=== PATIENT | female | born 1970 | race Caucasian/White ===

== ENCOUNTER 2018-12-11 05:46 | Day surgery (SDC) | payer OTHER ==
[~2018-12-11] VITALS: Ht 170.2 cm; Wt 90.0 kg
[~2018-12-11 05:46] MED LIST: ASPI81CH PO; ATOR10 PO; B Complete1 EACH PO; CALCAVITDA PO; ESTR2 PO; FENO48 PO; GABA300 PO; GLIM2 PO; GLIP10ER PO; HEARTBURN RELI150 M1 PO; LISHYD2012 PO; LOSARTAN PO; METF500; METF500 PO; Norco 5-325 Ta1 EACH PO; OMEP20ER PO; OMEPRAZOLE PO; PROM25 PO; Prinivil10 MG PO; TRAM50 PO; VITAMIN D3 PO
[2018-12-11] MEDS ORDERED: OMEPRAZOLE20 MG PO (06:26)
== END 2018-12-11 22:51 | disposition home or self-care (01) ==
LOC: MHTC 05:46
DX: Z45.09 Encounter for adjustment and management of other cardiac device (principal); I63.9 Cerebral infarction, unspecified; E11.9 Type 2 diabetes mellitus without complications; I10 Essential (primary) hypertension; E78.00 Pure hypercholesterolemia, unspecified
CPT/HCPCS: 33286

== ENCOUNTER 2020-09-27 10:14 | Emergency (ER) | payer OTHER ==
[~2020-09-27] VITALS: Ht 167.6 cm; Wt 72.6 kg
[~2020-09-27 10:14] MED LIST changes: +OMEPRAZOLE20 MG PO
[2020-09-27] MEDS ORDERED: Pyridium200 MG PO (10:39)
[2020-09-27] MEDS ORDERED: Cephalexin500 M1 PO (10:39)
== END 2020-09-27 10:40 | disposition home or self-care (01) ==
LOC: ER 10:14
DX: N39.0 Urinary tract infection, site not specified (principal); Z79.82 Long term (current) use of aspirin; Z79.899 Other long term (current) drug therapy
CPT/HCPCS: 99283

== ENCOUNTER → 2020-10-12 | Outpatient (CLI) | payer OTHER ==
[~2020-10-12] MED LIST changes: +Cephalexin500 M1 PO; +Pyridium200 MG PO
== END | disposition home or self-care (01) ==
LOC: LAB SHORT 13:48 → LAB 13:48
DX: N39.0 Urinary tract infection, site not specified (principal)
CPT/HCPCS: 87077; 87086; 87186

== ENCOUNTER → 2020-12-17 | Outpatient (CLI) | payer OTHER | END | disposition home or self-care (01) | LOC: LAB SHORT 13:45 → LAB 13:45 → LAB FUT 12-17 18:15 | DX: R82.998 Other abnormal findings in urine (principal) | CPT/HCPCS: 87077; 87086; 87186 ==

== ENCOUNTER 2021-09-22 02:04 | Inpatient (IN) | payer OTHER ==
[~2021-09-22] VITALS: Ht 170.2 cm; Wt 83.5 kg
[2021-09-22 06:21] LABS: Albumin, Blood 3.7 g/dL (3.4-5.0); Bilirubin, Total 0.3 mg/dL (0.1-1.0); Calcium, Blood 8.9 mg/dL (8.5-10.1); Creatinine, Blood 6.3 mg/dL (0.40-1.00); Globulin, Blood 3.6 g/dL (2.2-4.0); Potassium, Blood 4.3 mmol/L (3.5-5.5); Total Protein, Blood 7.3 g/dL (6.4-8.2)
[2021-09-22 07:26] LABS: BASOPHILS ABSOLUTE AUTO 0.02 K/mm3 (0.00-0.23); BASOPHILS PERCENT AUTO 0 % (0-2); EOSINOPHILS PERCENT AUTO 1 % (0-6); Hematocrit 33.2 % (33.0-51.0); IMMATURE GRAN ABSOLUTE AUTO 0.02 K/mm3 (0.00-0.10); IMMATURE GRAN PERCENT AUTO 0 % (0-1); LYMPHOCYTES ABSOLUTE AUTO 1.11 K/mm3 (0.84-5.20); LYMPHOCYTES PERCENT AUTO 13 % (21-46); MONOCYTES ABSOLUTE AUTO 0.48 K/mm3 (0.16-1.47); MONOCYTES PERCENT AUTO 6 % (4-13); Mean Corpuscular HGB 27.8 pg (26.0-34.0); Mean Corpuscular HGB Conc 33.1 g/dL (31.5-36.5); Mean Corpuscular Volume 84 fL (80-100); Mean Platelet Volume 10.6 fL (9.1-12.4); NEUTROPHILS ABSOLUTE AUTO 6.85 K/mm3 (1.96-9.15); NEUTROPHILS PERCENT AUTO 80 % (41-73); Platelet Count 250 K/mm3 (150-400); RDW Coefficient Variation 14.5 % (11.7-14.2); RDW Standard Deviation 44.4 fL (35.1-46.3); Red Blood Cell Count 3.95 M/mm3 (3.80-5.20); White Blood Cell Count 8.58 K/mm3 (4.00-11.30)
[2021-09-22 07:43] LABS: Glucose, Blood 41 mg/dL (70-99)
--- NOTE | 2021-09-22 16:49 | NUR ---
PATIENT ADMITTED FOR HYPOGLYCEMIA Patient AOx4, independent in room. Mild tremors noted in hands, D5W running cotinously, CBG 70. Patient ate lunch, rechecked CBG a few hours later, CBG now 133. Patient appears comfortable, denies sx cold/clammy, N/V, no tremors in hands noted. Vitals stable.
--- NOTE | 2021-09-23 04:33 | NUR ---
ON 09/23/21 @ 0015, DR HARRIS ROUND OFF WITH PT. PROVIDER ORDERED, " ADD NS @ 50 ML/HR ALONG WITH D5NS @50 ML/HR" PROVIDER FURTHER ADDED, " IF BS <100 D/C D5NS & INCREASE RATE OF NS TO 100 ML/HR. IF BS >275, D/C NS AND INCREASE RATE OF D5NS @100 ML/HR. OTHERWISE, KEEP D5NS & NS @50 ML/HR." NS STARTED AT 50 ML/HR ORDERED. ACCUCHECKS Q4HRS. WILL CONTINUE TO MONITOR.
--- NOTE | 2021-09-23 04:47 | NUR ---
A&OX4. V/S WNL.INDEPENDANT. ADA DIET. ACUCHEKCS Q4HRS. IV TO R) HAND; D5NS & NS BOTH INFUSING SIMULTANEOUSLY @ 50 ML/HR ORDERED. ACUCHECKS: 251; 239, 213. VOIDS W/O DIFFICULTY. NO BM THIS SHIFT. WILL CONTINUE TO MONITOR.
[2021-09-23 05:58] LABS: Hematocrit 29.8 % (33.0-51.0); Hemoglobin 9.8 g/dL (11.5-16.0)
[2021-09-23 06:23] LABS: Anion Gap 10 mmol/L (6-16); Blood Urea Nitrogen 64 mg/dL (8-24); Bun/Creatinine Ratio 10.6 (12.0-20.0); CO2, Blood 20 mmol/L (21-32); Calcium, Blood 8.6 mg/dL (8.5-10.1); Chloride, Blood 108 mmol/L (98-108); Creatinine, Blood 6.03 mg/dL (0.40-1.00); Glomerular Filtration Rate 8 (60-); Glucose, Blood 200 mg/dL (70-99); Magnesium, Blood 1.8 mg/dL (1.6-2.4); Phosphorus, Blood 5.5 mg/dL (2.5-4.9); Sodium, Blood 138 mmol/L (136-145)
--- NOTE | 2021-09-23 06:43 | NUR ---
ROUNDED OF WITH PT. PROVIDER SAID, " IF BS > 250 D/C D5NS AND INCREASE RATE OF NS AT 100 ML/HR." WILL CONTINUE TO MONITOR.
[2021-09-23 12:43] LABS: Source, Urine Clean Catch
[2021-09-23 13:04] LABS: Appearance, Urine Clear (Clear); Bilirubin, Urine Neg (Neg); Blood, Urine 2+ (Neg); Glucose Qualitative, Urine 2+ (Neg); Ketones, Urine Neg (Neg); Leukocyte Esterase, Urine Neg (Neg); Nitrite, Urine Neg (Neg); Protein, Urine 1+ (Neg); Urobilinogen, Urine NORM (Normal); pH, Urine 6.5 (5.0-8.0)
[2021-09-23 13:21] LABS: Color, Urine Yellow (P-Yellow)
[2021-09-23 13:22] LABS: Bacteria Few /hpf; Squamous Epithelial Cells Few /hpf (Few); White Blood Cells, Urine 0-2 /hpf (0-5)
[2021-09-23 15:28] LABS: Bun/Creatinine Ratio 10.3 (12.0-20.0); Creatinine, Blood 6.11 mg/dL (0.40-1.00); Potassium, Blood 4.9 mmol/L (3.5-5.5)
--- NOTE | 2021-09-23 17:08 | NUR ---
SHIFT SUMMARY PT SEEMS TO BE IMPROVING AND DENIES ANY SYMPTOMS OF HYPOGLYCEMIA. IV FLUIDS STOPPED AND BLOOD GLUCOSE HAS REMAINED IN THE MID 200'S AT THIS TIME. INSULIN STARTED TONIGHT. VSS.
--- NOTE | 2021-09-24 04:22 | NUR ---
A&OX4. V/S WNL. INDEPENDANT. ADA DIET. ACUCHECKS Q4HRS. REFER TO LABS FOR ACUCHECKS. IV TO R) HAND. VOIDS W/O DIFFICULTY. NO BM THIS SHIFT. PT HAD A SHOWER. WILL CONTINUE TO MONITOR.
[2021-09-24 06:02] LABS: Hematocrit 30.7 % (33.0-51.0); Hemoglobin 9.8 g/dL (11.5-16.0)
[2021-09-24 06:16] LABS: Anion Gap 9 mmol/L (6-16); Blood Urea Nitrogen 65 mg/dL (8-24); Bun/Creatinine Ratio 11.7 (12.0-20.0); CO2, Blood 22 mmol/L (21-32); CPK Creatine Kinase 72 U/L (26-193); Calcium, Blood 8.9 mg/dL (8.5-10.1); Chloride, Blood 108 mmol/L (98-108); Creatinine, Blood 5.57 mg/dL (0.40-1.00); Glomerular Filtration Rate 9 (60-); Glucose, Blood 206 mg/dL (70-99); Magnesium, Blood 1.9 mg/dL (1.6-2.4); Phosphorus, Blood 4.9 mg/dL (2.5-4.9); Potassium, Blood 4.2 mmol/L (3.5-5.5); Sodium, Blood 139 mmol/L (136-145)
--- NOTE | 2021-09-24 11:06 | NUR ---
AM NOTE MS MARIANO IS COMFORTABLE IN BED, NO PAIN OR SOB THIS AM. SHE SPOKE WITH DR LE AND SAID SHE UNDERSTANDS THE PLAN OF CARE. GOOD UOP, 1000CC YELLOW URINE EMPTIED THIS AM. INDEPENDENT UP TO THE TOILET, STEADY GAIT PER PT. BED LOW, CALL LIGHT IN REACH.
--- NOTE | 2021-09-24 16:40 | NUR ---
SHIFT SUMMARY MS MARIANO IS ALERT, ORIENTATED X 4, NO C/O PAIN. GOOD UOP. IVF STARTED AT 50CC/HR THEN RATE INCREASED TO 75CC/HR. NEW PIV PLACED. TOLERATING PO FLUIDS WELL. UP INDEPENDENTLY TO BR, DENIES DIZZYNESS. AT BEDSIDE. BED LOW, CALL LIGHT IN REACH.
[2021-09-24 16:45] LABS: Albumin, Blood 3.1 g/dL (3.4-5.0); Anion Gap 7 mmol/L (6-16); Blood Urea Nitrogen 61 mg/dL (8-24); Bun/Creatinine Ratio 12.3 (12.0-20.0); CO2, Blood 22 mmol/L (21-32); Chloride, Blood 107 mmol/L (98-108); Creatinine, Blood 4.95 mg/dL (0.40-1.00); Glomerular Filtration Rate 10 (60-); Glucose, Blood 266 mg/dL (70-99); Phosphorus, Blood 4.4 mg/dL (2.5-4.9); Sodium, Blood 136 mmol/L (136-145)
--- NOTE | 2021-09-25 05:23 | NUR ---
SHIFT SUMMARY NO ACUTE CHANGES THIS SHIFT. AOX4. VSS. SBP ELEVATED @TIMES TO 170'S, HOWEVER WHEN RECHECKED SBP DECREASED TO 150'S. DENIES N/V, DYSPNEA. HS CBG @290, 0100 CBG @171, NO COVERAGE ORDERED. VOIDING ADEQUATE URINE. ABLE TO MAKE NEEDS KNOWN, PT WANTING TO DC HOME TODAY. WILL MONITOR.
[2021-09-25 05:37] LABS: Hematocrit 28.7 % (33.0-51.0); Hemoglobin 9.5 g/dL (11.5-16.0)
[2021-09-25 06:11] LABS: Anion Gap 10 mmol/L (6-16); Blood Urea Nitrogen 60 mg/dL (8-24); Bun/Creatinine Ratio 13.4 (12.0-20.0); CO2, Blood 22 mmol/L (21-32); Chloride, Blood 107 mmol/L (98-108); Creatinine, Blood 4.47 mg/dL (0.40-1.00); Glomerular Filtration Rate 11 (60-); Glucose, Blood 153 mg/dL (70-99); Magnesium, Blood 1.9 mg/dL (1.6-2.4); Phosphorus, Blood 5.5 mg/dL (2.5-4.9); Potassium, Blood 3.9 mmol/L (3.5-5.5); Sodium, Blood 139 mmol/L (136-145)
[2021-09-25] MEDS ORDERED: CEPH500 PO (13:59)
[2021-09-25] MEDS ORDERED: HUMALOG KW100 UNIT/1 SC (14:10)
--- NOTE | 2021-09-25 16:36 | NUR ---
DISCHARGE NOTE DISCHARGED TO HOME WITH AT 1500HRS. GIVEN VERBAL AND WRITTEN INSTRUCTIONS PLUS DEMONSTRATION OF INSULIN PEN. PT VERBALISED FULL UNDERSTANDING OF DISCHARGE INSTRUCTIONS. SHE DENIED ANY C/O PAIN OR SYMPTOMS AT TIME OF DISCHARGE. PIV REMOVED INTACT. PT WAS A&OX4. GOOD APPETITE. UP INDEPENDENT TO BATHROOM, STEADY GAIT. NO CONCERNS VOICED ON DISCHARGE FROM [facility].
--- NOTE | 2021-09-26 11:31 | NUR ---
RECEIVED CALL FROM [facility] REQUESTING MAX DOSE OF INSULIN PT CAN HAVE IN ONE DAY FOR LISPRO INSULIN SO THEY CAN FILL THE PRESCRIPTION. GAVE INFO AND CALLED PT TO LET HER KNOW SHE CAN DIRECTOR COST HER PRESCRIPTION TODAY.
== END 2021-09-25 15:00 | disposition home or self-care (01) | DRG 638 ==
LOC: ER 02:04 → PCU 02:05 → MEDS 02:05
PROVIDERS: Family Medicine; Internal Medicine; Internal Medicine Nephrology; Student in an Organized Health Care Education/Training Program; ADMIT Internal Medicine
DX: E11.649 Type 2 diabetes mellitus with hypoglycemia without coma (principal); E87.1 Hypo-osmolality and hyponatremia; N39.0 Urinary tract infection, site not specified; E87.2 Acidosis; N17.9 Acute kidney failure, unspecified; I12.9 Hypertensive chronic kidney disease with stage 1 through stage 4 chronic kidney disease, or unspecified chronic kidney disease; N18.2 Chronic kidney disease, stage 2 (mild); D63.1 Anemia in chronic kidney disease; G89.29 Other chronic pain; E88.09 Other disorders of plasma-protein metabolism, not elsewhere classified; E11.22 Type 2 diabetes mellitus with diabetic chronic kidney disease; E78.00 Pure hypercholesterolemia, unspecified; E11.40 Type 2 diabetes mellitus with diabetic neuropathy, unspecified; T38.3X5A Adverse effect of insulin and oral hypoglycemic [antidiabetic] drugs, initial encounter; Z86.73 Personal history of transient ischemic attack (TIA), and cerebral infarction without residual deficits; Z79.84 Long term (current) use of oral hypoglycemic drugs; Z79.82 Long term (current) use of aspirin; Z79.899 Other long term (current) drug therapy; Z90.710 Acquired absence of both cervix and uterus; Z90.722 Acquired absence of ovaries, bilateral; Z90.49 Acquired absence of other specified parts of digestive tract; Z90.89 Acquired absence of other organs
CPT/HCPCS: 36415; 76770; 80048; 80053; 80069; 81001; 82550; 82947; 83735; 85014; 85018; 85025; 87077; 87086; 87186; 96361; 99285; A9270; G0378; J0696; J0881; J1644; J7030; J7042; J7060; J7120

== ENCOUNTER → 2021-10-08 | Outpatient (CLI) | payer OTHER ==
[~2021-10-08] MED LIST changes: +CEPH500 PO; +HUMALOG KW100 UNIT/1 SC
== END | disposition home or self-care (01) ==
LOC: LAB SHORT 16:46 → LAB 16:46
DX: N39.0 Urinary tract infection, site not specified (principal)
CPT/HCPCS: 87086

== ENCOUNTER → 2022-04-19 | Outpatient (CLI) | payer OTHER | LOC: PLD 07:44 → LAB SHORT 07:44 | DX: R21 Rash and other nonspecific skin eruption (principal) | CPT/HCPCS: 88312 ==

== ENCOUNTER 2022-11-28 19:06 | Emergency (ER) | payer OTHER ==
[~2022-11-28] VITALS: Ht 170.2 cm; Wt 68.0 kg
[2022-11-28 19:19] VITALS: BP 192/94
== END 2022-11-28 20:15 | disposition home or self-care (01) ==
LOC: ER 19:06
DX: S01.511A Laceration without foreign body of lip, initial encounter (principal); E11.9 Type 2 diabetes mellitus without complications; I10 Essential (primary) hypertension; Z86.73 Personal history of transient ischemic attack (TIA), and cerebral infarction without residual deficits; Z79.82 Long term (current) use of aspirin; Z79.4 Long term (current) use of insulin; W01.198A Fall on same level from slipping, tripping and stumbling with subsequent striking against other object, initial encounter
CPT/HCPCS: 12011; 99282-25

== ENCOUNTER → 2023-04-23 | Outpatient (CLI) | payer OTHER | LOC: LAB 15:00 → LAB SHORT 15:00 | DX: N39.0 Urinary tract infection, site not specified (principal) | CPT/HCPCS: 87077; 87086; 87186 ==

== ENCOUNTER → 2023-10-02 | Outpatient (CLI) | payer OTHER ==
[2023-10-02 17:54] LABS: BASOPHILS ABSOLUTE AUTO 0.06 K/mm3 (0.00-0.23); BASOPHILS PERCENT AUTO 1 % (0-2); EOSINOPHILS ABSOLUTE AUTO 0.25 K/mm3 (0.00-0.68); EOSINOPHILS PERCENT AUTO 3 % (0-6); Hematocrit 37.4 % (33.0-51.0); Hemoglobin 12.2 g/dL (11.5-16.0); IMMATURE GRAN ABSOLUTE AUTO 0.02 K/mm3 (0.00-0.10); IMMATURE GRAN PERCENT AUTO 0 % (0-1); LYMPHOCYTES ABSOLUTE AUTO 1.55 K/mm3 (0.84-5.20); LYMPHOCYTES PERCENT AUTO 15 % (21-46); MONOCYTES ABSOLUTE AUTO 0.44 K/mm3 (0.16-1.47); MONOCYTES PERCENT AUTO 4 % (4-13); Mean Corpuscular HGB 29.1 pg (26.0-34.0); Mean Corpuscular HGB Conc 32.6 g/dL (31.5-36.5); Mean Corpuscular Volume 89 fL (80-100); Mean Platelet Volume 12.6 fL (9.1-12.4); NEUTROPHILS ABSOLUTE AUTO 7.79 K/mm3 (1.96-9.15); NEUTROPHILS PERCENT AUTO 77 % (41-73); Platelet Count 181 K/mm3 (150-400); RDW Coefficient Variation 13.2 % (11.7-14.2); RDW Standard Deviation 43.2 fL (35.1-46.3); Red Blood Cell Count 4.19 M/mm3 (3.80-5.20); White Blood Cell Count 10.11 K/mm3 (4.00-11.30)
[2023-10-02 18:45] LABS: Albumin, Blood 3.4 g/dL (3.4-5.0); Albumin/Globulin Ratio 0.9 (0.8-1.8); Bilirubin, Total 0.4 mg/dL (0.1-1.0); Bun/Creatinine Ratio 15.8 (12.0-20.0); Calcium, Blood 8.7 mg/dL (8.5-10.1); Creatinine, Blood 1.9 mg/dL (0.40-1.00); Globulin, Blood 3.6 g/dL (2.2-4.0); Potassium, Blood 4.3 mmol/L (3.5-5.5); Thyroid Stimulating Hormone 1.07 uIU/mL (0.360-4.800)
== END ==
LOC: LAB 12:22 → LAB SHORT 12:22
PROVIDERS: Nurse Practitioner Family
DX: E11.51 Type 2 diabetes mellitus with diabetic peripheral angiopathy without gangrene (principal); R53.83 Other fatigue
CPT/HCPCS: 80053; 82306; 82607; 82746; 83036; 84443; 85025

== ENCOUNTER 2023-11-14 19:19 | Emergency (ER) | payer OTHER ==
[~2023-11-14] VITALS: Ht 170.2 cm; Wt 90.7 kg
[2023-11-14 19:59] LABS: BASOPHILS ABSOLUTE AUTO 0.03 K/mm3 (0.00-0.23); BASOPHILS PERCENT AUTO 0 % (0-2); EOSINOPHILS ABSOLUTE AUTO 0.08 K/mm3 (0.00-0.68); EOSINOPHILS PERCENT AUTO 1 % (0-6); Hematocrit 41.8 % (33.0-51.0); Hemoglobin 14.1 g/dL (11.5-16.0); IMMATURE GRAN ABSOLUTE AUTO 0.03 K/mm3 (0.00-0.10); IMMATURE GRAN PERCENT AUTO 0 % (0-1); LYMPHOCYTES ABSOLUTE AUTO 1.21 K/mm3 (0.84-5.20); LYMPHOCYTES PERCENT AUTO 13 % (21-46); MONOCYTES ABSOLUTE AUTO 0.41 K/mm3 (0.16-1.47); MONOCYTES PERCENT AUTO 4 % (4-13); Mean Corpuscular HGB 29.1 pg (26.0-34.0); Mean Corpuscular HGB Conc 33.7 g/dL (31.5-36.5); Mean Corpuscular Volume 86 fL (80-100); NEUTROPHILS PERCENT AUTO 81 % (41-73); Platelet Count 197 K/mm3 (150-400); RDW Coefficient Variation 13.2 % (11.7-14.2); Red Blood Cell Count 4.84 M/mm3 (3.80-5.20); White Blood Cell Count 9.26 K/mm3 (4.00-11.30)
[2023-11-14 20:23] LABS: Albumin, Blood 3.9 g/dL (3.4-5.0); Albumin/Globulin Ratio 0.9 (0.8-1.8); Bilirubin, Total 0.5 mg/dL (0.1-1.0); Bun/Creatinine Ratio 14.4 (12.0-20.0); Calcium, Blood 9.7 mg/dL (8.5-10.1); Creatinine, Blood 2.15 mg/dL (0.40-1.00); Globulin, Blood 4.3 g/dL (2.2-4.0); Total Protein, Blood 8.2 g/dL (6.4-8.2)
[2023-11-14 21:23] LABS: Source, Urine Clean Catch
[2023-11-14 21:24] LABS: Appearance, Urine Hazy (Clear); Blood, Urine Neg (Neg); Color, Urine Yellow (P-Yellow); Glucose Qualitative, Urine Neg (Neg); Ketones, Urine Neg (Neg); Leukocyte Esterase, Urine 2+ (Neg); Nitrite, Urine Neg (Neg); Protein, Urine 2+ (Neg); Specific Gravity, Urine 1.025 (1.003-1.022); Urobilinogen, Urine 1+ (Normal)
[2023-11-14 21:41] LABS: Bilirubin, Urine 2+ (Neg)
[2023-11-14 21:51] LABS: Bacteria Mod /hpf; Calcium Oxalate Crystals Many /hpf; Red Blood Cells, Urine Not Seen /hpf (0-2); Squamous Epithelial Cells Rare /hpf (Few)
[2023-11-14] MEDS ORDERED: NS 1,000 ML IV SCH (23:05)
[2023-11-14] MEDS ORDERED: Ondansetron HCl 2 MG / ML 2ML Vial IV ONE (23:05)
[2023-11-14] MEDS ORDERED: CEPH500 PO (23:30)
[2023-11-14] MEDS ORDERED: ONDA4ODT MM (23:30)
[2023-11-14 23:43] VITALS: BP 148/90
== END 2023-11-14 23:59 | disposition home or self-care (01) ==
LOC: ER 19:19
PROVIDERS: Student in an Organized Health Care Education/Training Program
DX: R11.2 Nausea with vomiting, unspecified (principal); I12.9 Hypertensive chronic kidney disease with stage 1 through stage 4 chronic kidney disease, or unspecified chronic kidney disease; N18.9 Chronic kidney disease, unspecified; N30.00 Acute cystitis without hematuria; E11.22 Type 2 diabetes mellitus with diabetic chronic kidney disease; E11.40 Type 2 diabetes mellitus with diabetic neuropathy, unspecified; K21.9 Gastro-esophageal reflux disease without esophagitis; Z79.82 Long term (current) use of aspirin; Z79.4 Long term (current) use of insulin; Z79.899 Other long term (current) drug therapy
CPT/HCPCS: 71046; 80053; 81001; 83690; 84484; 85025; 87086; 93005; 93010; 96374; 99284-25; J2405; J7030

== ENCOUNTER → 2023-12-31 | Outpatient (CLI) | payer OTHER ==
[~2023-12-31] MED LIST changes: +ONDA4ODT MM
== END ==
LOC: LAB 14:45 → LAB SHORT 14:45
DX: N39.0 Urinary tract infection, site not specified (principal)
CPT/HCPCS: 87086